=== PATIENT | male | born 1945 | race Caucasian/White ===

== ENCOUNTER 2016-10-30 16:10 | Inpatient (IN) | payer MEDICARE, OTHER ==
[~2016-10-30] VITALS: Ht 177.8 cm; Wt 112.6 kg
[~2016-10-30 16:10] MED LIST: BACITRACIN 50,000 UNITS INJ IRRIG ONE; PHENYLEPHRINE 10 MG/ML VIAL IV ONE
[2016-10-30] MEDS ORDERED: ALU/MAG/SIM 30 ML UDC PO PRN (17:25)
[2016-10-30] MEDS ORDERED: BISACODYL 10 MG SUPP RECTAL PRN (17:25)
[2016-10-30] MEDS ORDERED: ONDANSETRON 4 MG VIAL IV PRN (17:25)
[2016-10-30] MEDS ORDERED: BISACODYL EC 5 MG TAB PO PRN (17:25)
[2016-10-30] MEDS ORDERED: DEXTROSE 50% SYRINGE 50 ML IV PRN (17:25)
[2016-10-30] MEDS ORDERED: SALINE FLUSH 10 ML FLUSH PRN (17:25)
[2016-10-30] MEDS ORDERED: MAG HYDROX 30 ML UDC PO PRN (17:25)
[2016-10-30] MEDS ORDERED: GLUCAGON 1 MG VIAL IM PRN (17:25)
[2016-10-30 17:30] VITALS: BP_SYST 155; RESP 24; TEMP 98.2
[2016-10-30 17:32] VITALS: BMI 38.2
[2016-10-30] MEDS: LACT RINGERS 1,000 ML IV SCH (18:21)
[2016-10-30 19:47] VITALS: BP_SYST 133; RESP 18; TEMP 98
[2016-10-30] MEDS: FAMOTIDINE 20 MG INJ IV SCH (21:07)
[2016-10-30] MEDS: SALINE FLUSH 10 ML FLUSH SCH (21:07)
[2016-10-30 23:18] VITALS: BP_SYST 149; RESP 20; TEMP 98.1
[2016-10-31] VITALS (18 sets, daily range): BP systolic 128–158; RESP 16–20; TEMP 97.8–99.8; Ht 177.8 cm; Wt 112.6 kg
[2016-10-31] MEDS: SODIUM CHLORIDE 0.9% FLUSH BAG 500 ML IV SCH (05:04)
[2016-10-31] MEDS: SALINE FLUSH 10 ML FLUSH SCH ×2 (08:00→19:58)
[2016-10-31] MEDS ORDERED: DUONEB INH ONE ×2 (08:58→09:50)
[2016-10-31] MEDS: FAMOTIDINE 20 MG INJ IV SCH ×2 (09:03→20:12)
[2016-10-31] MEDS ORDERED: MIDAZOLAM 2 MG/2 ML INJ IV ONE (09:50)
[2016-10-31] MEDS ORDERED: LIDOCAINE 1% BUFFERED 1 ML SYR INTRADERM PRN (09:50)
[2016-10-31] MEDS ORDERED: LACT RINGERS 1,000 ML IV SCH (09:50)
[2016-10-31] MEDS ORDERED: METOCLOPRAMIDE 10 MG/2 ML VIAL IV PUSH ONE (09:50)
[2016-10-31] MEDS ORDERED: GLYCOPYRROLATE 0.2 MG/ML VIAL IV ONE (09:50)
[2016-10-31] MEDS ORDERED: MIDAZOLAM 2 MG/2 ML INJ ONE (10:40)
[2016-10-31] MEDS ORDERED: MORPHINE 2 MG/ML SYR IV PRN (12:00)
[2016-10-31] MEDS ORDERED: OXYCODONE 5 MG TAB PO PRN (12:00)
[2016-10-31] MEDS ORDERED: MEPERIDINE 25 MG/ML IV PRN (12:00)
[2016-10-31] MEDS ORDERED: DILAUDID 1 MG/ML AMP IV PRN (12:00)
[2016-10-31] MEDS ORDERED: ONDANSETRON 4 MG VIAL IV PRN (12:00)
[2016-10-31] MEDS ORDERED: MORPHINE 4 MG/ML SYR IV PRN (12:00)
[2016-10-31] MEDS: MORPHINE 2 MG/ML SYR IV PRN (15:13)
[2016-10-31] MEDS: LACT RINGERS 1,000 ML IV SCH (16:26)
[2016-10-31] MEDS: CEFAZOLIN 2,000 MG in SODIUM CHLORIDE 0.9% 100 ML IV SCH ×2 (16:26→23:50)
[2016-11-01] VITALS (20 sets, daily range): BP systolic 104–169; RESP 16–24; TEMP 97.1–101.7
[2016-11-01] MEDS: MORPHINE 2 MG/ML SYR IV PRN (02:06)
[2016-11-01] MEDS ORDERED: ACETAMINOPHEN 325 MG TAB PO ONE (03:05)
[2016-11-01] MEDS: SODIUM CHLORIDE 0.9% FLUSH BAG 500 ML IV SCH (06:00)
[2016-11-01] MEDS: FAMOTIDINE 20 MG INJ IV SCH ×2 (07:58→20:03)
[2016-11-01] MEDS: SALINE FLUSH 10 ML FLUSH SCH ×2 (07:59→19:36)
[2016-11-01] MEDS: CEFAZOLIN 2,000 MG in SODIUM CHLORIDE 0.9% 100 ML IV SCH ×2 (08:12→15:54)
[2016-11-01] MEDS: LACT RINGERS 1,000 ML IV SCH (10:11)
[2016-11-01] MEDS ORDERED: Finasteride 5 MG TAB PO SCH (16:00)
[2016-11-01] MEDS ORDERED: NEB-ALBUTEROL 2.5 MG/3 ML INH PRN (18:00)
[2016-11-01] MEDS ORDERED: NITROGLYCERIN SL 0.4 MG TAB SL PRN (18:00)
[2016-11-01] MEDS: GABAPENTIN 100 MG CAP PO SCH (20:02)
[2016-11-01] MEDS: OMEGA 3 FATTY ACIDS 1 GM CAP PO SCH (20:03)
[2016-11-01] MEDS: CARVEDILOL 25 MG TAB PO SCH (20:03)
[2016-11-01] MEDS: Furosemide 20 MG TAB PO SCH (20:04)
[2016-11-01] MEDS ORDERED: MISSING DOSE XX ONE (20:10)
[2016-11-01] MEDS: Atorvastatin 40 MG TAB PO SCH (20:43)
[2016-11-01] MEDS ORDERED: TAMSULOSIN 0.4 MG CAP PO SCH (21:00)
[2016-11-02] VITALS (7 sets, daily range): BP systolic 123–144; RESP 16–20; TEMP 97–98.2
[2016-11-02] MEDS: LACT RINGERS 1,000 ML IV SCH (01:18)
[2016-11-02] MEDS ORDERED: MISSING DOSE XX ONE (03:25)
[2016-11-02] MEDS: SODIUM CHLORIDE 0.9% FLUSH BAG 500 ML IV SCH (05:26)
[2016-11-02] MEDS: FAMOTIDINE 20 MG INJ IV SCH ×2 (07:54→21:05)
[2016-11-02] MEDS: Finasteride 5 MG TAB PO SCH (07:54)
[2016-11-02] MEDS: CETIRIZINE 10 MG TAB PO SCH (07:54)
[2016-11-02] MEDS: FELODIPINE SR 5 MG TAB PO SCH (07:55)
[2016-11-02] MEDS: TAMSULOSIN 0.4 MG CAP PO SCH (07:55)
[2016-11-02] MEDS: SPIRONOLACTONE 25 MG TAB PO SCH (07:55)
[2016-11-02] MEDS: Furosemide 20 MG TAB PO SCH ×2 (07:55→21:05)
[2016-11-02] MEDS: OMEGA 3 FATTY ACIDS 1 GM CAP PO SCH ×2 (07:55→21:04)
[2016-11-02] MEDS: ASPIRIN EC 81 MG TAB PO SCH (07:56)
[2016-11-02] MEDS: GABAPENTIN 100 MG CAP PO SCH ×2 (07:56→21:04)
[2016-11-02] MEDS: SALINE FLUSH 10 ML FLUSH SCH ×2 (07:57→21:08)
[2016-11-02] MEDS: novoLOG MIX 70/30 INSULIN SUBQ SCH ×2 (08:31→18:08)
[2016-11-02] MEDS: CARVEDILOL 25 MG TAB PO SCH ×2 (09:00→21:05)
[2016-11-02] MEDS: CEFAZOLIN 2,000 MG in SODIUM CHLORIDE 0.9% 100 ML IV SCH ×3 (09:25→23:11)
[2016-11-02] MEDS ORDERED: KCL CR 10 MEQ CAP PO ONE (11:35)
[2016-11-02] MEDS ORDERED: PHARMACY TO DOSE VANCOMYCIN IV SCH (11:35)
[2016-11-02] MEDS ORDERED: VANCOMYCIN 2,000 MG in SODIUM CHLORIDE 0.9% 500 ML IV ONE (12:15)
[2016-11-02] MEDS: Atorvastatin 40 MG TAB PO SCH (21:05)
[2016-11-02] MEDS: KCL CR 10 MEQ CAP PO SCH (21:05)
[2016-11-03] VITALS (7 sets, daily range): BP systolic 120–154; RESP 14–20; TEMP 97.3–97.8
[2016-11-03] MEDS: VANCOMYCIN 1,250 MG in SODIUM CHLORIDE 0.9% 250 ML IV SCH ×2 (00:05→12:11)
[2016-11-03] MEDS: SODIUM CHLORIDE 0.9% FLUSH BAG 500 ML IV SCH (05:18)
[2016-11-03] MEDS: novoLOG MIX 70/30 INSULIN SUBQ SCH ×2 (08:00→17:56)
[2016-11-03] MEDS: SALINE FLUSH 10 ML FLUSH SCH ×2 (08:00→21:09)
[2016-11-03] MEDS: CEFAZOLIN 2,000 MG in SODIUM CHLORIDE 0.9% 100 ML IV SCH (10:39)
[2016-11-03] MEDS: FAMOTIDINE 20 MG INJ IV SCH ×2 (10:40→21:09)
[2016-11-03] MEDS: GABAPENTIN 100 MG CAP PO SCH ×2 (10:43→21:11)
[2016-11-03] MEDS: ASPIRIN EC 81 MG TAB PO SCH (10:43)
[2016-11-03] MEDS: CARVEDILOL 25 MG TAB PO SCH ×2 (10:43→21:11)
[2016-11-03] MEDS: TAMSULOSIN 0.4 MG CAP PO SCH (10:44)
[2016-11-03] MEDS: OMEGA 3 FATTY ACIDS 1 GM CAP PO SCH ×2 (10:44→21:10)
[2016-11-03] MEDS: CETIRIZINE 10 MG TAB PO SCH (10:44)
[2016-11-03] MEDS: SPIRONOLACTONE 25 MG TAB PO SCH (10:44)
[2016-11-03] MEDS: Furosemide 20 MG TAB PO SCH ×2 (10:44→21:10)
[2016-11-03] MEDS: Finasteride 5 MG TAB PO SCH (10:44)
[2016-11-03] MEDS: FELODIPINE SR 5 MG TAB PO SCH (10:45)
[2016-11-03] MEDS: KCL CR 10 MEQ CAP PO SCH ×2 (10:45→21:11)
[2016-11-03] MEDS: Atorvastatin 40 MG TAB PO SCH (21:11)
[2016-11-04] MEDS: VANCOMYCIN 1,250 MG in SODIUM CHLORIDE 0.9% 250 ML IV SCH (01:16)
[2016-11-04] MEDS: SODIUM CHLORIDE 0.9% FLUSH BAG 500 ML IV SCH (01:16)
[2016-11-04 03:31] VITALS: BP_SYST 138; RESP 18; TEMP 97.7
[2016-11-04 08:04] VITALS: BP_SYST 164; RESP 16; TEMP 97.3
[2016-11-04] MEDS: ASPIRIN EC 81 MG TAB PO SCH (09:40)
[2016-11-04] MEDS: KCL CR 10 MEQ CAP PO SCH (09:40)
[2016-11-04] MEDS: SPIRONOLACTONE 25 MG TAB PO SCH (09:40)
[2016-11-04] MEDS: Furosemide 20 MG TAB PO SCH (09:40)
[2016-11-04] MEDS: TAMSULOSIN 0.4 MG CAP PO SCH (09:41)
[2016-11-04] MEDS: Finasteride 5 MG TAB PO SCH (09:41)
[2016-11-04] MEDS: GABAPENTIN 100 MG CAP PO SCH (09:41)
[2016-11-04] MEDS: CARVEDILOL 25 MG TAB PO SCH (09:41)
[2016-11-04] MEDS: OMEGA 3 FATTY ACIDS 1 GM CAP PO SCH (09:41)
[2016-11-04] MEDS: CETIRIZINE 10 MG TAB PO SCH (09:41)
[2016-11-04] MEDS: FELODIPINE SR 5 MG TAB PO SCH (09:41)
[2016-11-04] MEDS: SALINE FLUSH 10 ML FLUSH SCH (09:42)
[2016-11-04] MEDS: novoLOG MIX 70/30 INSULIN SUBQ SCH (09:42)
[2016-11-04] MEDS: FAMOTIDINE 20 MG INJ IV SCH (09:43)
[2016-11-04 10:46] VITALS: BP_SYST 164; RESP 16; TEMP 97.3
[2016-11-04 10:51] VITALS: BP_SYST 164; RESP 16; TEMP 97.3
[2016-11-04 11:01] VITALS: BP_SYST 164; RESP 16; TEMP 97.3
== END 2016-11-04 13:53 | DRG 240 ==
LOC: ENRESERVDT → ENRESERVTM → ENPENDDIS 17:18 → 5THE 17:18
PROVIDERS: ADMIT Internal Medicine; ATTEND Internal Medicine
PROC: 0Y6H0Z1 Detachment at Right Lower Leg, High, Open Approach (ICD-10-PCS; principal; 2016-10-31 11:19)
DX: E11.52 Type 2 diabetes mellitus with diabetic peripheral angiopathy with gangrene (principal); E11.22 Type 2 diabetes mellitus with diabetic chronic kidney disease; I73.1 Thromboangiitis obliterans [Buerger's disease]; R33.9 Retention of urine, unspecified; I73.9 Peripheral vascular disease, unspecified; E78.5 Hyperlipidemia, unspecified; R91.1 Solitary pulmonary nodule; J44.9 Chronic obstructive pulmonary disease, unspecified; Z87.891 Personal history of nicotine dependence; J45.909 Unspecified asthma, uncomplicated; E66.01 Morbid (severe) obesity due to excess calories; Z68.39 Body mass index [BMI] 39.0-39.9, adult; G47.33 Obstructive sleep apnea (adult) (pediatric); I12.9 Hypertensive chronic kidney disease with stage 1 through stage 4 chronic kidney disease, or unspecified chronic kidney disease; N18.3 Chronic kidney disease, stage 3 (moderate)
CPT/HCPCS: 36430; 36600; 71010; 80048; 80053; 82803; 82947; 84132; 85014; 85018; 85025; 85610; 85730; 86850; 86900; 86901; 86923; 87040; 87077; 87088; 87186; 88307; 88311; 93923; 94799; 99232; 99233; 99238

== ENCOUNTER 2016-11-24 13:42 | Emergency (ER) | payer MEDICARE, OTHER | END 2016-11-24 16:33 | disposition home or self-care (01) | LOC: ER 14:42 | DX: N30.01 Acute cystitis with hematuria (principal); Z79.899 Other long term (current) drug therapy; Z79.82 Long term (current) use of aspirin; Z87.891 Personal history of nicotine dependence | CPT/HCPCS: 81001; 87088 ==